=== PATIENT | female | born 1950 ===

== ENCOUNTER 2018-09-19 12:39 | Inpatient (IN) | payer MEDICARE ==
[2018-09-19 13:37] LABS: Hematocrit 36 % (35-47); Hemoglobin 11.5 g/dl (12.0-16.0); Mean Corpuscular HGB Conc 32 g/dl (31-36); Mean Corpuscular Hemoglobin 21 pg (27-31); Mean Corpuscular Volume 64 fL (80-97); Mean Platelet Volume 8.8 fL (7.4-10.4); Platelet Count 182 10^3/ul (150-450); Red Blood Count 5.61 10^6/ul (4.00-5.40); Red Cell Distribution Width 17 % (10.5-15); White Blood Count 4.8 10^3/ul (3.5-10.8)
[2018-09-19 13:46] LABS: INR 0.91 (0.77-1.02)
[2018-09-19 13:57] LABS: Albumin 5.3 g/dL (3.2-5.2); Albumin/Globulin Ratio 1.9 (1-3); BUN/Creatinine Ratio 13.8 (8-20); Calcium 10.1 mg/dL (8.6-10.3); EGFR African American 78.6 (>60); EGFR Non-African American 64.9 (>60); Globulin 2.8 g/dL (2-4); Potassium 4.1 mmol/L (3.5-5.0); Total Bilirubin 0.8 mg/dL (0.2-1.0); Total Protein 8.1 g/dL (6.4-8.9)
--- NOTE | 2018-09-19 14:21 | ED ---
Lower Extremity - HPI Summary HPI Summary: 67 year old F [facility] accompanied by with a chief complaint of left foot pain since three weeks ago, worse since three days ago. The patient rates the pain 8/10 in severity. Symptoms aggravated by nothing. Symptoms alleviated by nothing. Patient reports left foot edema, left foot erythema, left foot itchiness, and left foot soreness. She notes some discoloration on her left foot. Patient denies fever, diaphoresis, chills. She denies chest pain, shortness of breath. 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 Patient noticed a blister on the inside of her left 3rd toe on 08/29/18 while she was in [place]. She went to an urgent care in [place], after which she was prescribed Keflex, which she took from 08/31/18 to 09/07/18. She notes that she was in [place] for 3 weeks, during which she was wearing sandals. She remembers putting on her sandal one day on her left foot and felt that something might have bit her foot, however, she is not sure what is causing her pain. She states that she had kept the toe wrapped in gauze after her girl friend released the blister using a sterilized pin prink. Patient returned to [place] on 09/15/18, went to her PCP, Dr. Madrid, on 09/17/18, and has been on Bactrim since then. She was seen by her PCP this morning who recommended coming to ED. - History of Current Complaint Chief Complaint: EDExtremityLower Stated Complaint: INF IN FOOT Time Seen by Provider: 09/19/18 13:05 Hx Obtained From: Patient Mechanism Of Injury: Unknown Onset of Pain: Days Onset/Duration: Still Present Severity Currently: Moderate Pain Intensity: 8 Pain Scale Used: 0-10 Numeric Timing: Constant Associated Signs And Symptoms: Positive: Negative - fever, diaphoresis, chills, chest pain, shortness of breath, Other - left foot edema, left foot erythema, left foot itchiness, left foot soreness, discoloration on her left foot Aggravating Factor(s): Nothing Alleviating Factor(s): Nothing - Allergies/Home Medications Allergies/Adverse Reactions: Allergies Allergy/AdvReac Type Severity Reaction Status Date / Time No Known Allergies Allergy Verified 09/19/18 12:53 Home Medications: Home Medications Multivitamins/Minerals TAB* [Theragran/minerals TAB*] 1 tab PO DAILY 09/19/18 [ History Confirmed 09/19/18] PMH/Surg Hx/FS Hx/Imm Hx Previously Healthy: No Endocrine/Hematology History: Denies: Hx Diabetes Sensory History: Reports: Hx Contacts or Glasses Opthamlomology History: Reports: Hx Contacts or Glasses - Cancer History Cancer Type, Location and Year: Breast CA - Surgical History Surgery Procedure, Year, and Place: Lumpectomy. Left shoulder arthroscopy Infectious Disease History: No Infectious Disease History: Denies: Traveled Outside the [place] in Last 30 Days - Family History Known Family History: Positive: Hypertension - father - Social History Alcohol Use: Weekly Hx Substance Use: Yes Substance Use Type: Reports: Marijuana Substance Use Comment - Amount & Last Used: occasionally Hx Tobacco Use: Yes Smoking Status (MU): Former Smoker Review of Systems Negative: Fever, Chills, Skin Diaphoresis Negative: Erythema Negative: Sore Throat Negative: Chest Pain Negative: Shortness Of Breath, Cough Negative: Abdominal Pain, Vomiting, Nausea Negative: dysuria, hematuria Positive: Edema - left foot, Other - Left foot pain, left foot erythema, left foot itchiness, and left foot soreness. Negative: Myalgia Positive: Other - left foot discoloration. Negative: Rash Neurological: Negative - Dizziness All Other Systems Reviewed And Are Negative: Yes Physical Exam - Summary Physical Exam Summary: Constitutional: Well-developed, Well-nourished, Alert. (-) Distressed Skin: Warm, Dry HENT: Normocephalic; Atraumatic Eyes: Conjunctiva normal Neck: Musculoskeletal ROM normal neck. (-) JVD, (-) Stridor, (-) Tracheal deviation Cardio: Rhythm regular, rate normal, Heart sounds normal; Intact distal pulses; The pedal pulses are 2+ and symmetric. Radial pulses are 2+ and symmetric. (-) Murmur Pulmonary/Chest wall: Effort normal. (-) Respiratory distress, (-) Wheezes, (-) Rales Abd: Soft, (-) epigastric tenderness, (-) Distension, (-) Guarding, (-) Rebound Musculoskeletal: There is decreased pigmentation in interdigital spaces between the 5th, 4th, and 3rd toes of left foot. The dorsal of foot is erythematous and swollen, as are 4 and 5 toes. Patient has pain with pass of motion with deflection and extension of 4 and 5 toes Lymph: (-) Cervical adenopathy Neuro: Alert, Oriented x3 Psych: Mood and affect Normal Triage Information Reviewed: Yes Vital Signs On Initial Exam: Initial Vitals Temp Pulse Resp BP Pulse Ox 96.9 F 109 18 142/89 99 09/19/18 12:47 09/19/18 12:47 09/19/18 12:47 09/19/18 12:47 09/19/18 12:47 Vital Signs Reviewed: Yes Diagnostics - Vital Signs Vital Signs Temp Pulse Resp BP Pulse Ox 09/19/18 12:47 96.9 F 109 18 142/89 99 - Laboratory Lab Results: Lab Results 09/19/18 09/19/18 09/19/18 Range/Units 13:19 13:19 13:19 WBC 4.8 (3.5-10.8) 10^3/ul RBC 5.61 H (4.00-5.40) 10^6/ul Hgb 11.5 L (12.0-16.0) g/dl Hct 36 (35-47) % MCV 64 L (80-97) fL MCH 21 L (27-31) pg MCHC 32 (31-36) g/dl RDW 17 H (10.5-15) % Plt Count 182 (150-450) 10^3/ul MPV 8.8 (7.4-10.4) fL Neut % (Auto) Pending Lymph % (Auto) Pending Harmon % (Auto) Pending Eos % (Auto) Pending Baso % (Auto) Pending Absolute Neuts (auto) Pending Absolute Lymphs (auto) Pending Absolute Monos (auto) Pending Absolute Eos (auto) Pending Absolute Basos (auto) Pending Absolute Nucleated RBC Pending Nucleated RBC % Pending INR (Anticoag Therapy) 0.91 (0.77-1.02) APTT 33.0 (26.0-36.3) seconds Sodium 138 (135-145) mmol/L Potassium 4.1 (3.5-5.0) mmol/L Chloride 103 (101-111) mmol/L Carbon Dioxide 28 (22-32) mmol/L Anion Gap 7 (2-11) mmol/L BUN 12 (6-24) mg/dL Creatinine 0.87 (0.51-0.95) mg/dL Est GFR ( Amer) 78.6 (>60) Est GFR (Non-Af Amer) 64.9 (>60) BUN/Creatinine Ratio 13.8 (8-20) Glucose 102 H (70-100) mg/dL Lactic Acid (0.5-2.0) mmol/L Calcium 10.1 (8.6-10.3) mg/dL Total Bilirubin 0.80 (0.2-1.0) mg/dL AST 49 H (13-39) U/L ALT 77 H (7-52) U/L Alkaline Phosphatase 25 L (34-104) U/L Troponin I 0.00 (<0.04) ng/mL Total Protein 8.1 (6.4-8.9) g/dL Albumin 5.3 H (3.2-5.2) g/dL Globulin 2.8 (2-4) g/dL Albumin/Globulin Ratio 1.9 (1-3) 09/19/18 Range/Units 13:19 WBC (3.5-10.8) 10^3/ul RBC (4.00-5.40) 10^6/ul Hgb (12.0-16.0) g/dl Hct (35-47) % MCV (80-97) fL MCH (27-31) pg MCHC (31-36) g/dl RDW (10.5-15) % Plt Count (150-450) 10^3/ul MPV (7.4-10.4) fL Neut % (Auto) Lymph % (Auto) Harmon % (Auto) Eos % (Auto) Baso % (Auto) Absolute Neuts (auto) Absolute Lymphs (auto) Absolute Monos (auto) Absolute Eos (auto) Absolute Basos (auto) Absolute Nucleated RBC Nucleated RBC % INR (Anticoag Therapy) (0.77-1.02) APTT (26.0-36.3) seconds Sodium (135-145) mmol/L Potassium (3.5-5.0) mmol/L Chloride (101-111) mmol/L Carbon Dioxide (22-32) mmol/L Anion Gap (2-11) mmol/L BUN (6-24) mg/dL Creatinine (0.51-0.95) mg/dL Est GFR ( Amer) (>60) Est GFR (Non-Af Amer) (>60) BUN/Creatinine Ratio (8-20) Glucose (70-100) mg/dL Lactic Acid 0.7 (0.5-2.0) mmol/L Calcium (8.6-10.3) mg/dL Total Bilirubin (0.2-1.0) mg/dL AST (13-39) U/L ALT (7-52) U/L Alkaline Phosphatase (34-104) U/L Troponin I (<0.04) ng/mL Total Protein (6.4-8.9) g/dL Albumin (3.2-5.2) g/dL Globulin (2-4) g/dL Albumin/Globulin Ratio (1-3) Result Diagrams: 09/20/18 06:39 09/20/18 06:39 Lab Statement: Any lab studies that have been ordered have been reviewed, and results considered in the medical decision making process. - Radiology CXR Radiology Interpretation Completed By: Radiologist Summary of Radiographic Findings: NO ACTIVE CARDIOPULMONARY DISEASE. ED physician has reviewed this report. Foot Radiology Interpretation Completed By: Radiologist Summary of Radiographic Findings: NO ACUTE OSSEOUS INJURY. NO APPRECIABLE EROSION OR PERIOSTEAL REACTION. PLAIN FILM FINDINGS OF OSTEOMYELITIS ARE RELATIVELY LATE FINDINGS. IF THERE IS PERSISTENT CLINICAL CONCERN FOR OSTEOMYELITIS, RECOMMEND CORRELATION WITH FOLLOWUP IMAGING, THREE-PHASE BONE SCANNING, WHITE BLOOD CELL SCAN, AND/OR MRI OF THE AFFECTED REGION. ED physician has reviewed this report. Re-Evaluation - Re-Evaluation First Eval Re-Evaluation Time: 15:22 Comment: Patient is updated about her results and knows about pending hospitalist consultation Lower Extremity Course/Dx - Course Course Of Treatment: 67 year old F [facility] [place] accompanied by with a chief complaint of left foot pain since three weeks ago, worse since three days ago. 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 Foot X-RAY shows no acute abnormalities. At 15:20, discussed case with Dr. Restrepo, hospitalist, who is aware of patient's non- weight bearing status and failing of two oral antibiotics. In ED course, patient was given IV Vancomycin. Patient admitted to hospitalist at 18:00. Patient is agreeable to this plan. - Diagnoses Provider Diagnoses: Tinea pedis, Cellulitis - Physician Notifications Discussed Care Of Patient With: Rosio Restrepo Time Discussed With Above Provider: 15:20 Instructed by Provider To: Other - Dr. Restrepo, hospitalist, is aware of patient' s non-weight bearing status and failing of two oral antibiotics Discharge - Sign-Out/Discharge Documenting (check all that apply): Patient Departure - Admit Patient Received Moderate/Deep Sedation with Procedure: No - Discharge Plan Condition: Stable Disposition: ADMITTED TO [facility] - Billing Disposition and Condition Condition: STABLE Disposition: Admitted to [facility] - Attestation Statements Document Initiated by Scribe: Yes Documenting Scribe: Marylou Bearden Provider For Whom Scribe is Documenting (Include Credential): Aleks Wong MD Scribe Attestation: Marylou Gerardo, scribed for Aleks Wong MD on 09/20/18 at 1308. Scribe Documentation Reviewed: Yes Provider Attestation: The documentation as recorded by the scribMarylou roca accurately reflects the service I personally performed and the decisions made by Aleks hebert MD Status of Scribe Document: Viewed
[2018-09-19 14:31] LABS: Immature Granulocytes 1 % (0-9); Lymphocytes % 10 %; Monocytes % 7 %; Neutrophil % 75 %
[2018-09-19 14:32] LABS: Microcytosis 3+
[2018-09-19 14:33] LABS: ABS Neutrophils 3.6 10^3/ul (1.5-7.7)
[2018-09-19 14:34] LABS: ABS Basophils 0.04 10^3/ul (0-0.2); ABS Eosinophils 0.28 10^3/ul (0-0.6)
[2018-09-19 14:53] LABS: C Reactive Protein 10.72 mg/L (<8.01)
[2018-09-19] MEDS ORDERED: Vancomycin(*) 1,000 MG in NS 0.9% 250 ML* 250 ML IVPB ONE (15:16)
[2018-09-19 16:06] LABS: Erythrocyte Sed Rate 9 mm/Hr (0-40)
[2018-09-19] MEDS ORDERED: Fluconazole 150 MG TAB PO ONE (16:59)
[2018-09-19] MEDS ORDERED: Acetaminophen TAB* 325 MG PO PRN (16:59)
[2018-09-19 18:25] LABS: Urine Appearance Clear; Urine Bilirubin Negative (Negative); Urine Blood Negative (Negative); Urine Color Yellow; Urine Glucose Negative (Negative); Urine Ketones Negative (Negative); Urine Nitrite Negative (Negative); Urine Protein Negative (Negative); Urine Urobilinogen Negative (Negative)
[2018-09-19] MEDS: ceFAZolin 1 GM ADVAN(*) 1 GM in NS 0.9% 50 ML* 50 ML IVPB SCH (19:07)
[2018-09-19] MEDS: Ibuprofen TAB* 400 MG PO PRN (20:45)
[2018-09-19] MEDS: Heparin VIAL(*) 5000 UNITS/ML VIAL (FIVE THOUSAND) SUBCUT SCH (20:46)
[2018-09-19] MEDS: Miconazole TOPICAL CREAM 2%* 30 GM TOPICAL SCH (20:48)
--- NOTE | 2018-09-19 22:44 | HP ---
CC: Dr. Gwendolyn Madrid * HISTORY AND PHYSICAL: DATE OF ADMISSION: 09/19/18 PROVIDER: Henrietta Tatum NP. PRIMARY CARE PROVIDER: Dr. Gwendolyn Madrid. ATTENDING PHYSICIAN WHILE IN THE HOSPITAL: Dr. Rosio Donald * (dictated by Henrietta Tatum NP). CHIEF COMPLAINT: Left foot swelling and redness. HISTORY OF PRESENT ILLNESS: Ms. Munoz is a 67-year-old female with a history of right breast cancer in 2002, status post radiation and lumpectomy, thalassemia minor who presented to the emergency room with complaint of left foot swelling and redness. On 08/31/18, the patient reports that on her third toe she noticed a blister and then proceeded to have some redness and drainage from that area. She was seen at an urgent care in [place] and placed on Keflex for 7 days. The patient reports that after completion of the antibiotic, the redness, swelling, and drainage dissipated and the area dried up. She was in [place] and then flew back home. She reports on Sunday, she noticed some blistering noted to the fourth toe on the left foot and on Sunday, there was more blistering and redness that have progressively gotten worse, and then developed blistering on the fifth toe as well. Due to the increased redness and swelling of her left foot and increased size of the blister, she presented to her primary care's office who directed her to come to the emergency room for further evaluation. The patient also reports that she was seen at her primary care's office on Sunday and at that time, she was placed on Bactrim. The patient reports that she did take 4 doses of Bactrim at home, but due to the fact the redness and swelling was not improving, she returned to her primary care's office who sent her to the emergency room for further evaluation. The patient denies any fevers, chills, denies any nausea, vomiting. She denies any recent injuries to her foot. Denies any cough, hemoptysis, shortness of breath , diarrhea, gross hematuria, dysuria, focal weakness, dysphagia, arthralgias, myalgias. She does report a rash and blistering noted to the fourth and fifth toes on the left foot. Denies any depression or anxiety. PAST MEDICAL HISTORY: 1. Right breast cancer, status post lumpectomy and radiation in 2002. 2. Thalassemia minor. PAST SURGICAL HISTORY: 1. Right breast lumpectomy. 2. Left shoulder surgery. HOME MEDICATIONS: None. ALLERGIES: No known drug allergies. FAMILY HISTORY: Father with a history of stroke at age 67, which he passed from. Maternal grandmother with history of diabetes and mother with history of colon cancer. SOCIAL HISTORY: Denies any tobacco. Does report occasional alcohol use. She does report daily marijuana use. Surrogate decision maker in the event she is unable to make her own decisions is her Ke. She is a full code. REVIEW OF SYSTEMS: There is no documented fever. No unintended weight loss, chest pain, edema, cough, hemoptysis, shortness of breath, nausea, vomiting, or diarrhea. Denies any gross hematuria, dysuria, focal weakness, visual changes, dysphagia, arthralgias, myalgias. She does report swelling and redness to the left foot with blistering noted to the fourth and fifth toes. Denies any psychosis or anxiety. PHYSICAL EXAMINATION GENERAL: At this time, Ms. Munoz is a 67-year-old female. She is in no acute distress, resting on the stretcher in the emergency room. She is alert and oriented x3. VITAL SIGNS: Temperature was 96.9, heart rate was 91, respirations 18, O2 saturation 99% on room air, blood pressure 142/89. HEENT: Head is atraumatic, normocephalic. Eyes: EOMs are intact. Sclerae anicteric and not pale. Oral mucosa appears to be moist. No oropharyngeal erythema. NECK: Supple. LUNGS: Clear to auscultation bilaterally. No wheezes, rales, or rhonchi. CARDIAC: S1, S2. Regular rate and rhythm. No murmurs, rubs, or gallops. ABDOMEN: Soft, flat, and nontender. Bowel sounds are present x4. EXTREMITIES: Pedal pulses are +2 bilaterally. She is able to move all 4 extremities with 5/5 strength. Her left foot does have erythema and swelling. She does have blistering with purplish and white discoloration to the fourth and fifth left toes. NEUROLOGIC: She is awake, alert and oriented x3. Speech is clear. Thought process is intact. No gross focal deficits. SKIN: She does have erythema to the left foot with blistering noted to the fourth and fifth toes. DIAGNOSTIC STUDIES/LAB DATA: WBCs are 4.8, RBCs 5.61, hemoglobin 11.5, hematocrit was 36, platelet count 182, INR was 0.91. Sodium 138, potassium 4.1 , chloride 103, carbon dioxide is 28, anion gap of 7, BUN was 12, creatinine 0.87, glucose was 102, lactic 0.7. ASTs were 49, ALTs were 77, alkaline phosphatase was 25. Troponin 0.00, C-reactive protein was 10.72. Urine was within normal limits. X-ray of the left foot, no acute osteal injury, no appreciable erosion or periosteal reaction. Plain film findings of osteomyelitis are relatively late findings. If there is persistent clinical concern for osteomyelitis, recommend bone scan or MRI. Chest x-ray, radiologist's impression: No active cardiopulmonary disease. ASSESSMENT AND PLAN: Ms. Munoz is a 67-year-old female with past medical history significant for right breast cancer and thalassemia minor who presented to the emergency room with complaints of left foot swelling and redness. She will be admitted under observation for: 1. Cellulitis. I suspect that she has cellulitis to her left foot. We will place her on Ancef 1 g q.8 hours. I also suspect that there is a fungal aspect to the cellulitis. I will give her Diflucan 150 mg p.o. once and miconazole cream twice daily to the toes. We will repeat CBC and CMP in the a.m. 2. History of right breast cancer, not an active concern. 3. DVT prophylaxis. Place her on heparin subcutaneous. 4. Diet. She can have a regular diet. 5. Code status. She is a full code. TIME SPENT: Time spent on this admission was 60 minutes, greater than half that time was spent with the patient at the bedside reviewing events leading thus far to her hospitalization, performing my physical exam, and reviewing my plan of care with the patient and implementing my plan of care. I have discussed this with my attending, Dr. Rosio Donald, and she is in agreement with my plan. HENRIETTA TATUM, ENVIRONMENTAL PROJECTS ADVISOR [id number]/[facility] #: [id number] [facility] WINDS PSYCHIATRIC HOSPITALAlfredito
[2018-09-20] MEDS: ceFAZolin 1 GM ADVAN(*) 1 GM in NS 0.9% 50 ML* 50 ML IVPB SCH ×3 (03:13→16:45)
[2018-09-20] MEDS: Heparin VIAL(*) 5000 UNITS/ML VIAL (FIVE THOUSAND) SUBCUT SCH ×3 (05:50→22:45)
[2018-09-20 07:06] LABS: Albumin 4.5 g/dL (3.2-5.2); Albumin/Globulin Ratio 1.9 (1-3); BUN/Creatinine Ratio 13.8 (8-20); Calcium 10.1 mg/dL (8.6-10.3); EGFR African American 78.6 (>60); EGFR Non-African American 64.9 (>60); Globulin 2.4 g/dL (2-4); Potassium 4.3 mmol/L (3.5-5.0); Total Bilirubin 0.9 mg/dL (0.2-1.0); Total Protein 6.9 g/dL (6.4-8.9)
[2018-09-20 07:15] LABS: Hematocrit 33 % (35-47); Hemoglobin 10.7 g/dl (12.0-16.0); Mean Corpuscular HGB Conc 33 g/dl (31-36); Mean Corpuscular Hemoglobin 21 pg (27-31); Mean Corpuscular Volume 64 fL (80-97); Mean Platelet Volume 9.2 fL (7.4-10.4); Platelet Count 147 10^3/ul (150-450); Red Blood Count 5.13 10^6/ul (4.00-5.40); Red Cell Distribution Width 17 % (10.5-15); White Blood Count 3.8 10^3/ul (3.5-10.8)
[2018-09-20] MEDS: Multivitamins/Minerals TAB PO SCH (10:08)
[2018-09-20] MEDS: Miconazole TOPICAL CREAM 2%* 30 GM TOPICAL SCH ×2 (10:09→22:45)
[2018-09-20 11:44] LABS: Hepatitis C Antibody Nonreactive (Nonreactive)
--- NOTE | 2018-09-20 13:26 | PN ---
Subjective Date of Service: 09/20/18 Interval History: Ms. Munoz is feeling a bit better today. She reports that the "worm-like" sensation to her left foot has resolved. She continues to have minor aching and itchiness to the foot. She feels as though the erythema is about the same, edema slightly improved. She denies CP, SOB, N/V/D. She reports taking both Keflex (full course) and Bactrim (2 days) within the last month for cellulitis. Family History: Unchanged from Admission Social History: Unchanged from Admission Past Medical History: Unchanged from Admission Objective Active Medications: Acetaminophen (Tylenol Tab*) 650 mg PO Q4H PRN FEVER/PAIN Heparin Sodium (Porcine) (Heparin Vial(*)) 5,000 units SUBCUT Q8HR CIRA Cefazolin Sodium 1 gm/ Sodium (Chloride) 50 mls @ 200 mls/hr IVPB Q8H CIRA Ibuprofen (Motrin Tab*) 400 mg PO Q6H PRN PAIN Miconazole Nitrate (Monistat 2%*) 1 applic TOPICAL BID CIRA Multivitamins/Minerals (Theragran/Minerals Tab*) 1 tab PO DAILY CIRA Oxygen Devices in Use Now: None Appearance: Middle-aged female sitting in bed in NAD Eyes: No Scleral Icterus Ears/Nose/Mouth/Throat: Mucous Membranes Moist Neck: NL Appearance and Movements; NL JVP, Trachea Midline Respiratory: Symmetrical Chest Expansion and Respiratory Effort, Clear to Auscultation Cardiovascular: NL Sounds; No Murmurs; No JVD, RRR Abdominal: NL Sounds; No Tenderness; No Distention Extremities: - - +1 pitting to left foot Skin: - - Erythema to left foot; Intact blisters on the 4th and 5th toes Neurological: Alert and Oriented x 3, NL Sensation Lines/Tubes/Other Access: Clean, Dry and Intact Peripheral IV Nutrition: Taking PO's Result Diagrams: 09/20/18 06:39 09/20/18 06:39 Assess/Plan/Problems-Billing Assessment: Ms. Munoz is a 67 yo F with PMH of breast cancer s/p chemo and radiation, and Thalassemia minor, who presented to the ED with c/o left foot erythema and edema and was found to have cellulitis. - Patient Problems (1) Cellulitis of left foot Code(s): L03.116 - CELLULITIS OF LEFT LOWER LIMB Comment: - With significant erythema and edmea to left foot, intact blisters to 4th and 5th toes - Failed outpatient therapy; took a full course of Keflex within the last month for cellulitis of the same foot which resolved then recurred; took 2 days of Bactrim prior to admission - Continue cefazolin, miconazole (2) Thalassemia minor Code(s): D56.3 - THALASSEMIA MINOR Comment: - Stable - CBC shows microcytic, hypochromic anemia with aniosocytosis (3) DVT prophylaxis Comment: - Heparin SQ (4) Full code status Code(s): Z78.9 - OTHER SPECIFIED HEALTH STATUS Comment: Status and Disposition: Observation for IV antibiotics. Anticipate d/c home when medically stable, likely 1-2 more days. Attending: Rosio Restrepo
[2018-09-20] MEDS: Ibuprofen TAB* 400 MG PO PRN (16:43)
[2018-09-21] MEDS: ceFAZolin 1 GM ADVAN(*) 1 GM in NS 0.9% 50 ML* 50 ML IVPB SCH ×2 (02:23→11:27)
[2018-09-21] MEDS: Heparin VIAL(*) 5000 UNITS/ML VIAL (FIVE THOUSAND) SUBCUT SCH (07:32)
[2018-09-21] MEDS: Miconazole TOPICAL CREAM 2%* 30 GM TOPICAL SCH (08:36)
[2018-09-21] MEDS: Multivitamins/Minerals TAB PO SCH (08:36)
[2018-09-21 12:15] VITALS: BP 142/79
--- NOTE | 2018-09-21 17:59 | DS ---
CC: Dr. Gwendolyn Madrid * DISCHARGE SUMMARY: DATE OF ADMISSION: 09/19/18 DATE OF DISCHARGE: 09/21/18 PRIMARY CARE PROVIDER: Dr. Gwendolyn Madrid. ATTENDING PHYSICIAN: Dr. Doan * (dictated by Coretta Flynn NP). PRIMARY DIAGNOSIS: Cellulitis of the left foot secondary to fungal infection. SECONDARY DIAGNOSIS: Thalassemia minor. STUDIES WHILE IN THE HOSPITAL: 1. Chest x-ray on 09/19/18 reads as no active cardiopulmonary disease. 2. Left foot x-ray on 09/19/18 reads as no acute osseous injury. No appreciable erosion or periosteal reaction. HISTORY OF PRESENT ILLNESS AND HOSPITAL COURSE: Ms. Munoz is a 67-year-old female with past medical history of breast cancer, status post lumpectomy and radiation and thalassemia minor, who presented to the emergency room on with complaints of left foot swelling and redness. Please see the history and physical by Henrietta Tatum NP, for a complete summary of the events leading up to this hospitalization. In short, the patient reported that in beginning of August, she noticed a blister on one of her toes and subsequently developed redness in that area. She took a 7-day course of Keflex for cellulitis. She completed that course of antibiotics and the cellulitis resolved; however, on 09/16/18, she developed blisters on the fourth and fifth toes. The foot became quite red and swollen. She went to her PCP's office and was placed on Bactrim. She took 4 doses of Bactrim, though was concerned about the redness and swelling not improving and so she presented to the emergency room. In the ER, she was noted to have essentially normal labs except for a mild microcytic hypochromic anemia consistent with thalassemia minor. She had imaging as noted above. Because of the concern for cellulitis, she was admitted by the hospitalist service. The patient did not meet sepsis criteria on admission and was never toxic appearing. The left foot had erythema up to the ankle and +1 to +2 pitting edema in the foot. She was noted to have blisters on the fourth and fifth toes with purple and white discoloration. She did note that the foot was painful to the touch. She was placed on cefazolin. There was also concern that this cellulitis was secondary to a fungal infection as the patient did have a cellulitis of the same foot, which resolved with Keflex though then recurred, so it is likely that she had a persistent fungal infection of the foot, which has now caused recurrent cellulitis. She was given 1 dose of fluconazole and then was placed on topical miconazole. As of today, the patient reports feeling better. The erythema is essentially resolved and the edema is significantly reduced. The foot is slightly painful while the patient is bearing weight, though she has been able to get around with the use of a cane. She has full active range of motion of all 5 toes and her ankle and there is no concern for any deeper infection at this point. The patient does feel comfortable returning home today and finishing out a course of oral antibiotics. Ms. Munoz is stable for discharge today. Vital signs are as follows: Temp 97.8, heart rate 72, respiratory rate 22, oxygen saturation 96% on room air, blood pressure 142/79. DISCHARGE MEDICATIONS: New medications: 1. Cephalexin 500 mg p.o. 4 times daily x8 days. 2. Miconazole 2% one application topically b.i.d. Continued medication: 1. Multivitamin t tab p.o. daily. Discontinued medication: 1. Bactrim. DISCHARGE PLAN: Ms. Munoz will be discharged home. Activity will be as tolerated. I have advised her to continue to bear weight on the left foot as tolerated. Diet will be regular as tolerated. Medications are noted above. The patient has been given an 8-day course of cephalexin to complete a total of 10 days of antibiotic therapy. At this point, I felt that the 10 days of antibiotic therapy is warranted due to this recurrent cellulitis. The patient was also given miconazole cream, which she should continue to apply to the toes in an attempt to prevent any further cellulitis. She should follow up with her primary care provider next week, and her PCP may determine at that time if she needs further treatment for any fungal infection. The patient has been advised to return to the emergency room or nearest hospital for any worsening of symptoms, shortness of breath, lightheadedness, dizziness, chest discomfort, high fevers, chills, night sweats, loss of consciousness, or any other worrisome signs or symptoms. This is a summarized report of a complex medical history and hospital stay. For further details, please see the entire medical record. TIME SPENT: Approximately 35 minutes was spent on this discharge. CORETTA FLYNN, ROCK LATHER [id number]/[facility] #: [id number] DENNYS
== END 2018-09-21 13:00 | disposition home or self-care (01) | DRG 603 ==
LOC: ED 12:39 → MED 16:59 → OBSVTOIN 09-20 12:00
PROVIDERS: ADMIT Internal Medicine; ATTEND Internal Medicine
DX: L03.116 Cellulitis of left lower limb (principal); B35.3 Tinea pedis; D50.9 Iron deficiency anemia, unspecified; D56.3 Thalassemia minor; Z85.3 Personal history of malignant neoplasm of breast; Z92.3 Personal history of irradiation; Z82.3 Family history of stroke; Z83.3 Family history of diabetes mellitus; Z80.0 Family history of malignant neoplasm of digestive organs; Z72.89 Other problems related to lifestyle; Z82.49 Family history of ischemic heart disease and other diseases of the circulatory system; Z87.891 Personal history of nicotine dependence; Z92.21 Personal history of antineoplastic chemotherapy
CPT/HCPCS: 36415; 71045; 80053; 81003; 83605; 84484; 85025; 85060; 85610; 85652; 85730; 86140; 86803; 87040; 99284; A9270-GY; J0690; J1644; J3370